=== PATIENT | male | born 1955 | race Caucasian/White ===

== ENCOUNTER 2016-10-14 18:38 | Emergency (ER) | payer OTHER, MEDICAID ==
[2016-10-14 18:48] VITALS: BP 144/93; PULSE 63; RESP 16; TEMP 97.7; O2SAT 94
[2016-10-14] MEDS ORDERED: PROPARACAINE 0.5% 15 ML OPHT DROP ONE (19:19)
== END 2016-10-14 19:24 | disposition left against medical advice (07) ==
LOC: EDUNIT#
DX: Z53.21 Procedure and treatment not carried out due to patient leaving prior to being seen by health care provider (principal)

== ENCOUNTER 2016-11-25 11:03 | Emergency (ER) | payer OTHER, MEDICAID ==
[2016-11-25 11:12] VITALS: TEMP 98.6
--- NOTE | 2016-11-25 12:01 | EDPHY ---
HPI/HX/ROS/PE/MDM Narrative: CHIEF COMPLAINT: Malaise HPI: This patient is a 61 year old male complaining of cough and vomiting. He has been feeling sick since last [place], six days ago. He has been unable to eat and drink much. His cough is productive, with whitish clear sputum. He endorses pain in his ribs from coughing. He denies fever, diarrhea, abdominal pain, urinary complaints, or other associated symptoms. REVIEW OF SYSTEMS: Aside from elements discussed in the HPI, a comprehensive 10-point review of systems was reviewed and is negative. PMH: "Black spot on lungs" SOCIAL HISTORY: Lives in [place]. PHYSICAL EXAM: General:Patient is alert, in no acute distress. ENT:Eyes are normal to inspection. ENT inspection normal. Neck: Normal inspection. Full range of motion. Respiratory: No respiratory distress. Scattered mild wheezes and rhonchi . Cardiovascular: Regular rate and rhythm. Strong peripheral pulses. Normal cap refill. Abdomen:The abdomen is nontender to palpation. There are no peritoneal signs. There are normal bowel sounds. Back: Normal to inspection. No tenderness to palpation. Skin: Normal color. No rash. Warm and dry. Extremities: Normal appearance. Full range of motion. Neuro: Oriented x3. Normal motor function. Normal sensory function. ED Course: 61 year old male presents with one week history of malaise including cough and vomiting with associated rib pain. Physical exam reveals scattered mild wheezes and rhonchi Plan for chest x-ray. Plan for labs including CBC, BMP, UA, and flu test. Chest x-ray negative for pneumothorax, pneumonia, or other acute processes. Evidence of healed rib fractures. 14:45 Patient would like to leave against medical advice prior to further evaluation. He is now walking out of the emergency department. - Data Points Imaging Results: Imaging Impressions Chest X-Ray 11/25/16 12:57 Impression: 1. No active cardiopulmonary disease seen. A few fibrotic streaks are suspected at the left base. 2. Healed bilateral rib fractures. 3. Mild peribronchial cuffing in the perihilar region bilaterally. There is nonspecific but can be seen with bronchitis or viral process. Laboratory Results: Laboratory Results 11/25/16 13:10 11/25/16 13:10 11/25/16 11/25/16 11/25/16 13:40 13:10 13:10 WBC RBC Hgb Hct MCV MCH MCHC RDW Plt Count MPV Neut % (Auto) Lymph % (Auto) Gila % (Auto) Eos % (Auto) Baso % (Auto) Nucleat RBC Rel Count Absolute Neuts (auto) Absolute Lymphs (auto) Absolute Monos (auto) Absolute Eos (auto) Absolute Basos (auto) Absolute Nucleated RBC Immature Gran % Seg Neutrophils % Band Neutrophils % Lymphocytes % Monocytes % Immature Gran # Absolute Seg Neuts Absolute Band Neuts Absolute Lymphocytes Absolute Monocytes Platelet Estimate Oval Macrocytes Sodium 129 mEq/L L mEq/L (134-144) Potassium 4.5 mEq/L mEq/L (3.5-5.2) Chloride 98 mEq/L mEq/L (97-110) Carbon Dioxide 20 mEq/l L mEq/l (22-31) Anion Gap 11 mEq/L mEq/L (8-16) BUN 16 mg/dL mg/dL (7-23) Creatinine 1.0 mg/dL mg/dL (0.7-1.3) Estimated GFR > 60 Glucose 90 mg/dL mg/dL (70-100) Calcium 9.6 mg/dL mg/dL (8.5-10.4) Lipase 187 IU/L IU/L (23-300) Urine Color YELLOW Urine Appearance HAZY Urine pH 6.0 (5.0-7.5) Ur Specific [place] 1.011 (1.002-1.030) Urine Protein NEGATIVE (NEGATIVE) Urine Ketones NEGATIVE (NEGATIVE) Urine Blood NEGATIVE (NEGATIVE) Urine Nitrate NEGATIVE (NEGATIVE) Urine Bilirubin NEGATIVE (NEGATIVE) Urine Urobilinogen NEGATIVE EU EU (0.2-1.0) Ur Leukocyte Esterase NEGATIVE (NEGATIVE) Urine Glucose NEGATIVE (NEGATIVE) Influenza A & B (PCR) NEGATIVE FOR FLU (NEGATIVE) 11/25/16 13:10 WBC 4.39 10^3/uL 10^3/uL (3.80-9.50) RBC 5.29 10^6/uL 10^6/uL (4.40-6.38) Hgb 18.9 g/dL H g/dL (13.7-17.5) Hct 53.6 % H % (40.0-51.0) MCV 101.3 fL H fL (81.5-99.8) MCH 35.7 pg H pg (27.9-34.1) MCHC 35.3 g/dL g/dL (32.4-36.7) RDW 12.5 % % (11.5-15.2) Plt Count 129 10^3/uL L 10^3/uL (150-400) MPV 10.1 fL fL (8.7-11.7) Neut % (Auto) Not Reported Lymph % (Auto) Not Reported Gila % (Auto) Not Reported Eos % (Auto) Not Reported Baso % (Auto) Not Reported Nucleat RBC Rel Count 0.0 % % (0.0-0.2) Absolute Neuts (auto) Not Reported Absolute Lymphs (auto) Not Reported Absolute Monos (auto) Not Reported Absolute Eos (auto) Not Reported Absolute Basos (auto) Not Reported Absolute Nucleated RBC 0.00 10^3/uL 10^3/uL (0-0.01) Immature Gran % Not Reported Seg Neutrophils % 59 % % Band Neutrophils % 5 % % Lymphocytes % 22 % % Monocytes % 14 % % Immature Gran # Not Reported Absolute Seg Neuts 2.59 10^/uL 10^/uL (1.70-6.50) Absolute Band Neuts 0.22 10^3/uL 10^3/uL (0.00-0.70) Absolute Lymphocytes 0.97 10^3/uL L 10^3/uL (1.00-3.00) Absolute Monocytes 0.61 10^3/uL 10^3/uL (0.30-0.80) Platelet Estimate DECREASED L (ADEQ) Oval Macrocytes 1+ H Sodium Potassium Chloride Carbon Dioxide Anion Gap BUN Creatinine Estimated GFR Glucose Calcium Lipase Urine Color Urine Appearance Urine pH Ur Specific [place] Urine Protein Urine Ketones Urine Blood Urine Nitrate Urine Bilirubin Urine Urobilinogen Ur Leukocyte Esterase Urine Glucose Influenza A & B (PCR) Medications Given: Discontinued Medications Sodium Chloride (Ns) 1,000 mls @ 0 mls/hr IV EDNOW ONE; Wide Open PRN Reason: Protocol Stop: 11/25/16 12:57 Last Admin: 11/25/16 13:05 Dose: 1,000 mls General Time Seen by Provider: 11/25/16 11:41 Initial Vital Signs: Initial Vital Signs Temperature (C) 37.0 C 11/25/16 11:10 Heart Rate 78 11/25/16 11:10 Respiratory Rate 14 11/25/16 11:10 Blood Pressure 141/86 H 11/25/16 11:10 O2 Sat (%) 90 L 11/25/16 11:10 O2 Delivery Mode Nasal Cannula O2 (L/minute) 2 Allergies/Adverse Reactions: No Known Allergies Allergy (Unverified 01/16/16 06:49) Home Medications: Medication Instructions Recorded Cyclobenzaprine 10/14/16 KLONOPIN 10/14/16 Percocet 5-325 mg Tablet 10/14/16 SIMVASTATIN 10/14/16 Singulair 10/14/16 Spiriva Inhaler (RX) 10/14/16 traZODone 10/14/16 Departure - Departure Disposition: Against Medical Advice Clinical Impression: Vomiting Qualifiers: Vomiting type: unspecified Vomiting Intractability: non-intractable Nausea presence: with nausea Qualified Code(s): R11.2 - Nausea with vomiting, unspecified Condition: Good Instructions: Acute Nausea and Vomiting (ED) Additional Instructions: Follow up with your primary care provider for continued evaluation. Return for fever, uncontrollable vomiting, or other worsening of condition. . Referrals: [facility] [Other] - As per Instructions Report Scribed for: Thai Deng Report Scribed by: Pura Ward Date of Report: 11/25/16 Time of Report: 12:01 Physician Review and Approval Statement: Portions of this note were transcribed by an ED scribe. I personally performed the history, physical exam, and medical decision making; and confirm the accuracy of the information in the transcribed note.
[2016-11-25] MEDS ORDERED: NS 1,000 ML IV ONE (12:56)
[2016-11-25 13:16] VITALS: BP 142/79; PULSE 87; RESP 15; O2SAT 94
[2016-11-25 13:18] LABS: ADD DIFF? YES; ADD MORPH? NO; ADD SCAN? NO; ATYPICAL LYMPHOCYTE FLAG 60 (0-99); FRAGMENT RBC FLAG 0 (0-99); HEMATOCRIT 53.6 % (40.0-51.0); HEMOGLOBIN 18.9 g/dL (13.7-17.5); LEFT SHIFT FLG 0 (0-99); LIPEMIA HEMOLYSIS FLAG 90 (0-99); MEAN CELL HEMOGLOBIN 35.7 pg (27.9-34.1); MEAN CELL HEMOGLOBIN CONCENTR. 35.3 g/dL (32.4-36.7); MEAN CELL VOLUME 101.3 fL (81.5-99.8); MEAN PLATELET VOLUME 10.1 fL (8.7-11.7); PLATELET CLUMPS FLAG 0 (0-99); PLATELET COUNT 129 10^3/uL (150-400); RED BLOOD CELL COUNT 5.29 10^6/uL (4.40-6.38); RED CELL DISTRIBUTION WIDTH 12.5 % (11.5-15.2)
[2016-11-25 13:50] LABS: COLOR YELLOW; LEUKOCYTE ESTERASE,URINE NEGATIVE (NEGATIVE); NITRITE,URINE NEGATIVE (NEGATIVE)
[2016-11-25 14:13] LABS: ANION GAP 11 mEq/L (8-16); CALCIUM 9.6 mg/dL (8.5-10.4); CARBON DIOXIDE 20 mEq/l (22-31); CHLORIDE 98 mEq/L (97-110); GLOMERULAR FILTRATION RATE > 60; GLUCOSE 90 mg/dL (70-100); POTASSIUM 4.5 mEq/L (3.5-5.2); SODIUM 129 mEq/L (134-144)
[2016-11-25 14:14] LABS: MACROCYTES 1+; PLATELET ESTIMATE DECREASED (ADEQ)
== END 2016-11-25 14:40 | disposition left against medical advice (07) ==
LOC: EDUNIT#
DX: R11.2 Nausea with vomiting, unspecified (principal); E86.9 Volume depletion, unspecified

== ENCOUNTER 2018-07-19 10:51 | Emergency (ER) | payer OTHER, MEDICAID ==
[2018-07-19 10:58] VITALS: BP 125/88
--- NOTE | 2018-07-19 11:12 | EDPHY ---
H & P Time Seen by Provider: 07/19/18 11:02 HPI/ROS: CHIEF COMPLAINT: Here for detox HISTORY OF PRESENT ILLNESS: Long history of alcoholism last drink at 4:00 a.m.. He wants detox. No other acute medical complaints. REVIEW OF SYSTEMS: Eye: no change in vision ENT: no sore throat Cardiac: no chest pain or syncope Pulmonary: no cough or SOB Abdomen: no vomiting, diarrhea, abdominal pain Musculoskeletal: Chronic back pain unchanged Skin: no rash Neuro: no headache Constitutional: no fever : no urinary symptoms A comprehensive 10 point review of systems is otherwise negative aside from elements mentioned in the history of present illness. PAST MEDICAL HISTORY: Includes COPD, bipolar disorder, chronic back pain, alcoholism Social history: Alcohol as in HPI General Appearance: Alert and conversant, cooperative. Eyes: No scleral icterus. ENT, Mouth: Normal mucous membranes. Respiratory: Normal respiratory effort, breath sounds equal, lungs are clear to auscultation. Cardiovascular: Regular rate and rhythm. Gastrointestinal: Abdomen is soft and non tender. Neurological: Alert, face symmetric, normal motor and sensory in extremities. Not tremulous. Ambulatory. Skin: Warm and dry, no rashes. Musculoskeletal: No peripheral edema. Psychiatric: Not agitated. Emergency Department course/MDM: Case management for detox options, does take Klonopin regularly for anxiety, is a [facility] patient. Case management saw the patient in the emergency department. He chose to leave and follow-up with [facility]. Smoking Status: Current every day smoker Constitutional: Initial Vital Signs Temperature (C) 37 C 07/19/18 10:55 Heart Rate 76 07/19/18 10:55 Respiratory Rate 16 07/19/18 10:55 Blood Pressure 125/88 H 07/19/18 10:55 O2 Sat (%) 92 07/19/18 10:55 O2 Delivery Mode Room Air Allergies/Adverse Reactions: No Known Allergies Allergy (Unverified 07/19/18 10:53) Home Medications: Medication Instructions Recorded Cyclobenzaprine 10/14/16 KLONOPIN 10/14/16 Percocet 5-325 mg Tablet 10/14/16 SIMVASTATIN 10/14/16 Spiriva Inhaler (RX) 10/14/16 traZODone 10/14/16 Acyclovir 07/19/18 Departure - Departure Disposition: Home, Routine, Self-Care Clinical Impression: Alcohol dependence Qualifiers: Substance use status: unspecified alcohol-induced disorder Qualified Code(s): F10.29 - Alcohol dependence with unspecified alcohol-induced disorder Condition: Good Instructions: Alcohol Dependence (ED) Referrals: [facility] ,. [Edm Groups for Call Sched] - As per Instructions
--- NOTE | 2018-07-19 12:00 | ASMTCMCOM ---
CM Note CM Note Notes: Patient is a very pleasant gentleman, lives in [place], history of ETOH and other addictions. Patient tells me that he was a [employer] in the [employer] and served in "[employer] in [employer]. He denies history of PTSD or other trauma. He has family back in [place], including his elderly parents that he is close to. Patient self presented to the ER seeking information regarding DETOX from alcohol for "binge drinking". Patient admits to taking prescribed oxycodone and clonopine and does not wish yo withdrawal from or stop taking these medications. Patient has [facility] insurance and states that his [facility] MD is Dr. Ospina. Patient is not currently receiving care at the [facility]. This CM discussed detox options with patient and explained that he would not be able to take his narcotic and benzodiazapine medications while in Detox. If and when patient chooses to detox from all of his medications. Patient states that he does not think he is ready to do this. "I thought I was ready, but maybe I am not". I have provided patient with information for [facility] in [place], explainig the process for admission either from the ER or directly if he cjooses to call for an intake assessment. Patient understands that is participating with [facility]. Patient tells me that he would like to go see his PCP to dicuss this further. PLAN: Patient has decided to "think about" and follow up with his [facility] PCP at this time. he states that he understands that he will need to address not only his alcoho;, but other addictive medications that he has been taking for a long time. Patient will discuss his options with his PCP and was appreciative of CM and ER availability today and always. CM availble for future needs prn Date Signed: 07/19/2018 11:59 AM Electronically Signed By:Jyothi Willingham RN
== END 2018-07-19 11:42 | disposition home or self-care (01) ==
DX: F10.29 Alcohol dependence with unspecified alcohol-induced disorder (principal)

== ENCOUNTER 2018-09-02 08:34 | Emergency (ER) | payer OTHER, MEDICAID | END 2018-09-02 09:29 | disposition home or self-care (01) ==